=== PATIENT | female | born 1970 | race American Indian/Alaskan Native ===

== ENCOUNTER 2018-02-14 20:21 | Emergency (ER) | payer MEDICAID, OTHER ==
--- NOTE | 2018-02-14 22:49 | EDM.PDOC ---
ED HPI GENERAL MEDICAL PROBLEM - General Chief Complaint: Lower Extremity Injury/Pain Stated Complaint: HURT TOE Time Seen by Provider: 02/14/18 20:33 Source of Information: Reports: Patient History Limitations: Reports: No Limitations - History of Present Illness INITIAL COMMENTS - FREE TEXT/NARRATIVE: left toe and foot pain; this is a 47 year old female, presents to ER for evaluation of foot pain. She reports toay at 3pm while at her Sister's home, got mad and kicked a chair. Great toe and mid foot swollen and painful to touch. no other injuries or concerns. reports home is safe, will be staying at Mom's home tonight in [facility]. Onset: Today Onset Date: 02/14/18 Onset Time: 15:00 Duration: Hour(s):, Constant Location: Reports: Lower Extremity, Left Quality: Reports: Ache, Throbbing Severity: Moderate Improves with: Reports: Immobilization Worsens with: Reports: Movement Context: Reports: Trauma Associated Symptoms: Reports: No Other Symptoms left foot pain Pain Score (Numeric/FACES): 10 - Related Data Allergies Allergy/AdvReac Type Severity Reaction Status Date / Time hydrocodone Allergy Itching Verified 02/14/18 22:46 naproxen Allergy Difficulty Verified 02/14/18 22:46 Breathing nickel Allergy Rash Verified 02/14/18 22:46 tomato Allergy Itching Verified 02/14/18 22:46 Social & Family History - Family History Family Medical History: Noncontributory Review of Systems - Review of Systems Review Of Systems: See Below Constitutional: Reports: Other (left foot pain) Musculoskeletal: Reports: Foot Pain (left great toe and mid foot) Skin: Reports: Bruising (left great toe), Erythema (left great toe and mid foot) Neurological: Reports: No Symptoms Psychiatric: Reports: No Symptoms ED EXAM, GENERAL - Physical Exam Exam: See Below Exam Limited By: No Limitations General Appearance: Alert, WD/WN, No Apparent Distress Extremities: Other (left mid foot and great toe with bruising and edema, point tenderness. pain with wt bearing.) Neurological: Alert, Oriented, Normal Cognition, No Motor/Sensory Deficits Psychiatric: Normal Affect Skin Exam: Warm, Dry, Intact, Erythema Lymphatic: No Adenopathy Course - Vital Signs Last Recorded V/S: Last Vital Signs Temp 36.8 C 02/14/18 22:36 Pulse 68 02/14/18 22:36 Resp 16 02/14/18 22:36 BP Pulse Ox 96 02/14/18 22:36 - Orders/Labs/Meds Orders: Active Orders 24 hr Category Date Time Status Foot Comp Min 3V Lt [CR] Stat Exams 02/14/18 22:31 Taken DME for Discharge [COMM] Urgent Oth 02/14/18 23:01 Ordered - Radiology Interpretation Free Text/Narrative:: left foot 3 views. declines pain medication at this time. xray; no fracture is seen, will discharge to home with pain meds, instructions to rest, ice, elevate, wear post op shoe for comfort. declines crutches. follow up with Primary Care Provider for recheck if not improved. Departure - Departure Time of Disposition: 23:04 Disposition: Home, Self-Care 01 Condition: Good Clinical Impression: Contusion of ankle or foot, left - Discharge Information Referrals: Santos Walker MD [Primary Care Provider] - Forms: ED Department Discharge Care Plan Goals: contusion of left foot and toe -rest -ice for two days, then heat -elevated -wear post op shoe for comfort medicate for pain; percocet 5-325mg; one every 4 to 6 hr prn #10 Motrin 600 mg po every 6 hr prn pain follow up with Primary Care for recheck in 5 to 7 days if not improved, sooner if condition worsen. - Problem List & Annotations (1) Contusion of ankle or foot, left SNOMED Code(s): 420250383 Code(s): [id number] - Status: Acute Priority: High Current Visit: Yes - My Orders Last 24 Hours: My Active Orders 02/14/18 22:31 Foot Comp Min 3V Lt [CR] Stat 02/14/18 23:01 DME for Discharge [COMM] Urgent - Assessment/Plan Last 24 Hours: My Active Orders 02/14/18 22:31 Foot Comp Min 3V Lt [CR] Stat 02/14/18 23:01 DME for Discharge [COMM] Urgent Plan: contusion of left foot and toe -rest -ice for two days, then heat -elevated -wear post op shoe for comfort medicate for pain; percocet 5-325mg; one every 4 to 6 hr prn #10 Motrin 600 mg po every 6 hr prn pain follow up with Primary Care for recheck in 5 to 7 days if not improved, sooner if condition worsen.
[2018-02-14] MEDS ORDERED: Acetaminophen/oxyCODONE 325-5 MG Tab PO ONE (23:14)
--- NOTE | 2018-02-15 11:00 | CR ---
Findings: Scattered hypertrophic change at the IP joints. Degenerative changes hypertrophic change at the fourth proximal metatarsal. A cranial heel spur and enthesophyte. No fracture.
== END 2018-02-14 23:37 | disposition home or self-care (01) ==
LOC: JP.ED 20:21
DX: S90.112A Contusion of left great toe without damage to nail, initial encounter (principal); Z91.018 Allergy to other foods; Z88.8 Allergy status to other drugs, medicaments and biological substances; Z88.6 Allergy status to analgesic agent; W22.09XA Striking against other stationary object, initial encounter; Y92.009 Unspecified place in unspecified non-institutional (private) residence as the place of occurrence of the external cause
CPT/HCPCS: 73630; 99284; A9270